=== PATIENT | female | born 1935 | race Caucasian/White ===

== ENCOUNTER 2017-01-27 08:14 | Emergency (ER) | payer MEDICARE ==
[2017-01-27 09:05] LABS: BASOPHIL 0.4 % (0-2); EOSINOPHIL 0.9 % (0-7); HGB 12.2 g/dl (12.5-16.0); LYMPHOCYTE 17.9 % (15-48); MCH 30.5 pg (25.0-31.0); MCV 92.5 fL (78.0-100.0); MONOCYTE 6.8 % (0-12); MPV 9.8 fL (6.0-9.5); PLT 214 K/uL (150-400); RDW 14.1 % (11.5-14.0); WBC 7.8 K/uL (4.0-10.5)
[2017-01-27 09:19] LABS: INR 1.03 (0.9-1.2); PROTHROMBIN TIME 13.1 SECONDS (11.7-14.0)
[2017-01-27 09:43] LABS: BILIRUBIN - TOTAL 0.5 mg/dL (0.1-1.0); CREATININE 1.1 mg/dL (0.5-1.0); GLOBULIN (CALCULATION) 2.9 g/dL (2.2-4.2); POTASSIUM 3.7 mmol/L (3.5-5.1); TOTAL PROTEIN 6.9 g/dL (6.4-8.3)
[2017-01-27 09:48] LABS: CKMB 2.94 ng/mL (0.97-4.94); MYOGLOBIN 56 ng/mL (26-65); TROPONIN T < 0.010 ng/mL
[2017-01-27 10:03] LABS: PTT > 180 SECONDS (23.2-31.4)
[2017-01-27 10:34] LABS: BILIRUBIN NEGATIVE (NEGATIVE); BLOOD TRACE-INTACT Ery/uL (NEGATIVE); CLARITY CLEAR (CLEAR); COLOR STRAW (YELLOW); GLUCOSE (U) NORMAL (NORMAL); KETONE (U) NEGATIVE (NEGATIVE); LEUKOCYTES NEGATIVE Leu/uL (NEGATIVE); NITRITE NEGATIVE (NEGATIVE); PROTEIN NEGATIVE (NEGATIVE); SPECIFIC GRAVITY 1.015 (1.001-1.030); UROBILINOGEN 0.2 mg/dL (0.2-1.0)
[2017-01-27 10:40] LABS: URINARY WBC RARE
[2017-01-27 10:41] LABS: BACTERIA TRACE; SQUAMOUS EPITHELIAL CELLS RARE
== END 2017-01-27 18:13 | disposition home or self-care (01) ==
LOC: FER 08:14
PROVIDERS: Emergency Medicine
DX: H49.00 Third [oculomotor] nerve palsy, unspecified eye (principal); R11.10 Vomiting, unspecified; I45.10 Unspecified right bundle-branch block; N18.9 Chronic kidney disease, unspecified; E03.9 Hypothyroidism, unspecified; E78.5 Hyperlipidemia, unspecified; Z88.0 Allergy status to penicillin; Z88.2 Allergy status to sulfonamides; Z88.5 Allergy status to narcotic agent; Z88.6 Allergy status to analgesic agent; Z91.09 Other allergy status, other than to drugs and biological substances; Z98.890 Other specified postprocedural states
CPT/HCPCS: 36415; 70450; 70551; 71010; 80053; 80061; 81001; 82550; 82553; 83874; 84484; 85025; 85610; 85730; 93005; Q9967

== ENCOUNTER 2020-11-05 00:26 | Emergency (ER) | payer MEDICARE, OTHER ==
[~2020-11-05 00:26] MED LIST: ACETAMINOPHEN325 MG PO; ARTIFICIAL TEA1 EACH EYEBOTH; ASPIRIN EC81 MG PO; BENTYL10 MG PO; FLEXERIL5 MG PO; HCTZ25 MG PO; JARDIANCE10 MG PO; K-DUR20 MEQ PO; LASIX20 MG PO; LIDOCAINE 5% P1 EACH TOP; LIPITOR40 MG PO; NORCO 5-325 TA1 EACH PO; PEPCID AC20 MG PO; PLAVIX75 MG PO; SYNTHROID100 MCG PO; ZYVOX600 MG PO
[2020-11-05 02:15] LABS: BASOPHIL 0.3 % (0-2); EOSINOPHIL 0.7 % (0-7); HCT 28.7 % (37.0-47.0); HGB 9.2 g/dl (12.5-16.0); LYMPHOCYTE 11.6 % (15-48); MCHC 32.1 g/dL (32.0-36.0); MCV 93.5 fL (78.0-100.0); MONOCYTE 7.3 % (0-12); MPV 9.6 fL (6.0-9.5); NEUTROPHIL 79.3 % (41-80); NRBC 0; PLT 308 K/uL (150-400); RBC 3.07 M/uL (4.20-5.40); RDW 14.2 % (11.5-14.0); WBC 21.3 K/uL (4.0-10.5)
[2020-11-05 02:30] LABS: ALBUMIN 2.2 g/dL (3.4-5.0); BILIRUBIN - TOTAL 0.3 mg/dL (0.2-1.0); BUN/CREAT RATIO (CALC) 19.7 RATIO; CREATININE 1.93 mg/dL (0.51-0.95); GLOBULIN (CALCULATION) 4.5 g/dL; POTASSIUM 3.9 mmol/L (3.5-5.1); TOTAL PROTEIN 6.7 g/dL (6.4-8.2)
[2020-11-05 02:36] LABS: LACTIC ACID 0.8 mmol/L (0.4-1.9)
[2020-11-05 03:36] LABS: INR 1.32 (0.9-1.2); PROTHROMBIN TIME 15.6 SECONDS (11.4-13.6); PTT 37.1 SECONDS (22.2-34.7)
== END 2020-11-05 04:45 | disposition other institution (70) ==
LOC: FER 00:26
PROVIDERS: Emergency Medicine
DX: A41.9 Sepsis, unspecified organism (principal); L03.311 Cellulitis of abdominal wall; K63.1 Perforation of intestine (nontraumatic); Z85.048 Personal history of other malignant neoplasm of rectum, rectosigmoid junction, and anus; Z88.0 Allergy status to penicillin; Z20.822 Contact with and (suspected) exposure to COVID-19
CPT/HCPCS: 36415; 71045; 80053; 83605; 84145; 85025; 85610; 85730; 87040; 93005; J1170; J1956; J2405; J3370; J7030; J7050; U0002